=== PATIENT | male | born 1945 | race Caucasian/White ===

== ENCOUNTER 2018-07-08 10:51 | Emergency (ER) | payer OTHER ==
[2018-07-08 11:19] VITALS: TEMP 98.6; BMI 49.4
--- NOTE | 2018-07-08 11:40 | PDOC ---
History of Present Illness - General Chief Complaint: Injury Stated Complaint: LOWER BACK PAIN Past History - Past Medical History Allergies/Adverse Reactions: Allergies Allergy/AdvReac Type Severity Reaction Status Date / Time No Known Allergies Allergy Verified 07/08/18 10:58 COPD: No Dementia: Yes GI Disorders: Yes (GERD) HTN: Yes Psychiatric Problems: Yes Other medical history: hepatitis B - Suicide/Smoking/Psychosocial Hx Smoking History: Current every day smoker Number of Cigarettes Smoked Daily: 2 Information on smoking cessation initiated: No *Physical Exam - Vital Signs Last Vital Signs Temp Pulse Resp BP Pulse Ox 98.6 F 66 24 H 138/73 91 L 07/08/18 11:06 07/08/18 11:06 07/08/18 11:06 07/08/18 11:06 07/08/18 11:06 - Physical Exam Comments: GENERAL: Awake, alert, and oriented to person/place/time, in no acute distress_ HEAD: No signs of trauma, normocephalic, atraumatic _ EYES: PERRLA, EOMI, sclera anicteric, conjunctiva clear_ ENT: Hearing grossly normal, nares patent, oropharynx clear without exudates. No uvular deviation. Moist mucosa_ NECK: Normal ROM, supple, no lymphadenopathy, JVD, or masses_ LUNGS: No distress, speaks full sentences, clear to auscultation bilaterally _ HEART: Regular rate and rhythm, normal S1 and S2, no murmurs appreciated, peripheral pulses normal and equal bilaterally._ ABDOMEN: Soft, nontender, normoactive bowel sounds. No guarding, no rebound. No masses_ EXTREMITIES: Normal inspection, Normal range of motion, no edema. No clubbing or cyanosis_ NEUROLOGICAL: Cranial nerves II through XII grossly intact. Normal speech, normal gait, no focal sensorimotor deficits _ SKIN: Warm, Dry, normal turgor, no rashes or lesions noted_ 07/08/18 11:40 Moderate Sedation - Procedure Monitoring Vital Signs: Procedure Monitoring Vital Signs Temperature 98.6 F 07/08/18 11:06 Pulse Rate 66 07/08/18 11:06 Respiratory Rate 24 H 07/08/18 11:06 Blood Pressure 138/73 07/08/18 11:06 O2 Sat by Pulse Oximetry (%) 91 L 07/08/18 11:06 *DC/Admit/Observation/Transfer - Referrals Referrals: Gabrielle Gutierrez MD [Primary Care Provider] - - Patient Instructions - Post Discharge Activity
--- NOTE | 2018-07-08 12:40 | PDOC ---
History of Present Illness - General Chief Complaint: Injury Stated Complaint: LOWER BACK PAIN Time Seen by Provider: 07/08/18 11:46 History Source: Patient Exam Limitations: No Limitations - History of Present Illness Initial Comments: 07/08/18 12:32 73 yo male from [facility] presents to ED after an unwitnessed fall off his bed this am. PMH of IDDM, HTN, HLD, 2 MIs, most recent approx 1 year ago (no stents or surgical intervention, only on ASA 81 mg) COPD, PTSD, depression, insomnia, chronic pain and rheumatoid arthritis. Pt appears to be a poor historian. When asked why he is in the ED today he states, "I am having trouble sleeping and no body at the snf helps me so I called 911." Asked directly what the pt would like us to do to help him and states he would like to switch [facility]. After direct questioning if pt had a recent fall, pt admits to falling out of his bed today, 2 feet off the ground onto wooded floors, did not hit head, no LOC, no changes in speech/vision, no sensory or motor deficits on 1 side of his body, N/ V, denies confusion. Pt is wheelchair bound and was helped back into his bed right after the fall. Asked directly if pt has back pain, denies. Pt admits to chronic bilateral knee and hip pain from RA that is controlled by his diet. Past History - Past Medical History Allergies/Adverse Reactions: Allergies Allergy/AdvReac Type Severity Reaction Status Date / Time No Known Allergies Allergy Verified 07/08/18 10:58 COPD: No Dementia: Yes GI Disorders: Yes (GERD) HTN: Yes Psychiatric Problems: Yes Other medical history: hepatitis B - Suicide/Smoking/Psychosocial Hx Smoking History: Current every day smoker Number of Cigarettes Smoked Daily: 2 Information on smoking cessation initiated: No Review of Systems - Review of Systems Constitutional: No: Chills, Fever Respiratory: No: Cough, Shortness of Breath, SOB with Exertion Cardiac (ROS): Yes: Edema (chronic). No: Chest Pain ABD/GI: No: Constipated, Diarrhea, Nausea, Vomiting : No: Burning, Dysuria, Discharge, Frequency, Flank Pain Musculoskeletal: No: Back Pain, Muscle Weakness Integumentary: No: Change in Color Neurological: No: Headache, Numbness, Paresthesia, Weakness, Dizziness *Physical Exam - Vital Signs Last Vital Signs Temp Pulse Resp BP Pulse Ox 98.6 F 66 24 H 138/73 91 L 07/08/18 11:06 07/08/18 11:06 07/08/18 11:06 07/08/18 11:06 07/08/18 11:06 - Physical Exam General Appearance: Yes: Nourished, Appropriately Dressed. No: Apparent Distress HEENT: positive: EOMI, CARSON Neck: positive: Supple Respiratory/Chest: positive: Lungs Clear, Normal Breath Sounds. negative: Respiratory Distress, Crackles, Rales, Stridor, Wheezing Cardiovascular: positive: Regular Rhythm, Regular Rate, S1, S2. negative: Edema , JVD, Murmur Vascular Pulses: Dorsalis-Pedis (R): 3+, Doralis-Pedis (L): 3+ Gastrointestinal/Abdominal: positive: Flat, Soft. negative: Pulsatile Mass, Distended, Guarding, Rebound, Tenderness Musculoskeletal: positive: Other (no deformities, stepoffs or pain with papation to midline C/T/L/S spine ). negative: CVA Tenderness, Vertebral Tenderness Extremity: positive: Normal Capillary Refill, Normal Inspection Integumentary: positive: Normal Color, Dry, Warm Neurologic: positive: liner replacer II-XII NML intact, Fully Oriented, Alert, Normal Mood/ Affect, Normal Response, Motor Strength 5/5. negative: Facial Droop, Numbness, Sensory Deficit, Finger to Nose (normal), Confused, Disoriented Moderate Sedation - Procedure Monitoring Vital Signs: Procedure Monitoring Vital Signs Temperature 98.6 F 07/08/18 11:06 Pulse Rate 66 07/08/18 11:06 Respiratory Rate 24 H 07/08/18 11:06 Blood Pressure 138/73 07/08/18 11:06 O2 Sat by Pulse Oximetry (%) 91 L 07/08/18 11:06 Medical Decision Making - Medical Decision Making Spoke with [facility] staff who state pt used other residents cell phone to call 911 after an unwitnessed fall with complaint of back pain 07/08/18 13:15 Pt in the ED states he is not happy at [facility] and has no medical complaints today. Denies back pain in the ED but does admit to having an unwitnessed fall today without hitting head, LOC, HE or other concerning/focal neurological deficits. AOX3, has full capacity, non toxic appearing and comfortable. denies pain while in the ED vitals stable, pt O2 sats low 90s, HX of COPD. Denies difficulty breathing, dizziness, confusion or requiring O2 at home Pt now stating that he would like to go back home without work up done in the ED. Pt agrees to have EKG and imaging done at this time but denies blood work. EKG show NSR without ST changes Lumbosacral X ray no acute path Thoracic x ray no acute path Head CT non con no acute path C spine non con no fracutres/subluxation or acute path Pt given home dose of 650 mg Tylenol with pain relief Pt states he wants to go back home at this time. Given DC instructions, understands plan and strict return precautions Sent home *DC/Admit/Observation/Transfer Diagnosis at time of Disposition: Unwitnessed fall - Discharge Dispostion Disposition: HOME Condition at time of disposition: Stable - Referrals Referrals: Gabrielle Gutierrez MD [Primary Care Provider] - - Patient Instructions Printed Discharge Instructions: How to Prevent Falls Additional Instructions: Please see your primary doctor within the next 48 hours. Continue taking your home dosed medications as prescribed. Return to the ER for new or concerning symptoms including but not limited to: Confusion, dizziness, headaches, changes in sensation or weakness on 1 side of your body. Thank you - Post Discharge Activity
[2018-07-08] MEDS ORDERED: ACETAMINOPHEN 650 MG/20.3 ML ORAL SOLUTION (CUPS) PO ONE (14:36)
[2018-07-08] MEDS ORDERED: ACETAMINOPHEN 650 MG/20.3 ML ORAL SOLUTION (CUPS) ONE (14:43)
--- NOTE | 2018-07-08 14:56 | PDOC ---
Attending Attestation - HPI HPI: 07/08/18 14:57 The patient is a 73 year old male with a past medical history of diabetes, HTN, HLD, NE (x2), rheumatoid arthritis, insomnia, PTSD, COPD, and depression brought in today by EMS for evaluation of fall. Patient reports that he feel out of bed this morning and called 911. Patient denies head strike or loss of consciousness. Patient denies headache, lightheadedness. Denies fever, chills. Denies chest pain, shortness of breath. Denies nausea, vomiting, diarrhea, abdominal pain. Allergies: NKA PCP: Gabrielle Gutierrez - Medical Decision Making 07/08/18 14:57 Documentation prepared by ZEYAD Swanson, acting as medical record retrieval specialist for Zhang Dubon MD. The patient is a 73 year old male with a past medical history of diabetes, HTN, HLD, NE (x2), rheumatoid arthritis, insomnia, PTSD, COPD, and depression brought in today by EMS for evaluation of fall. <Apolinar Tate - Last Filed: 07/08/18 14:57> - Resident Resident Name: Jaguar Ann - ED Attending Attestation I have performed the following: I have examined & evaluated the patient, The case was reviewed & discussed with the resident, I agree w/resident's findings & plan, Exceptions are as noted - Physicial Exam PE: 07/08/18 16:12 Reviewed Residents PE - Medical Decision Making 07/08/18 14:56 Sent from [facility] because of fall no significant pain on examination head CT cervical spine CT negative for acute injury X-rays negative for acute pathology Patient comfortable asking to go home Findings, need for follow-up and strict return instructions discussed with patient. <Zhang Dubon - Last Filed: 07/08/18 16:13>
--- NOTE | 2018-07-08 15:36 | EKG ---
Test Reason : Blood Pressure : / mmHG Vent. Rate : 067 BPM Atrial Rate : 067 BPM P-R Int : 196 ms QRS Dur : 112 ms QT Int : 406 ms P-R-T Axes : 051 -38 056 degrees QTc Int : 429 ms NORMAL SINUS RHYTHM LEFT AXIS DEVIATION ABNORMAL ECG NO PREVIOUS ECGS AVAILABLE Confirmed by MD MARY, JOJO ([id number]) on 07/08/2018 3:36:18 PM Referred By: Confirmed By:JOJO HERNANDEZ MD
[2018-07-08 16:31] VITALS: BP 157/79; PULSE 77
== END 2018-07-08 16:15 | disposition home or self-care (01) ==
LOC: JER 10:51
DX: M54.5 Low back pain (principal); W06.XXXA Fall from bed, initial encounter; Y93.89 Activity, other specified; Y92.122 Bedroom in nursing home as the place of occurrence of the external cause; Y99.8 Other external cause status; I10 Essential (primary) hypertension; E11.9 Type 2 diabetes mellitus without complications; E78.5 Hyperlipidemia, unspecified; J44.9 Chronic obstructive pulmonary disease, unspecified; I25.2 Old myocardial infarction; M06.80 Other specified rheumatoid arthritis, unspecified site; G47.00 Insomnia, unspecified; F43.10 Post-traumatic stress disorder, unspecified; F32.9 Major depressive disorder, single episode, unspecified; F03.90 Unspecified dementia, unspecified severity, without behavioral disturbance, psychotic disturbance, mood disturbance, and anxiety; Z86.19 Personal history of other infectious and parasitic diseases; Z99.3 Dependence on wheelchair
CPT/HCPCS: 70450-TC; 72070-TC-FY; 72100-TC-FY; 72125-TC; 93005; 93010; 99282-25

== ENCOUNTER 2018-10-24 11:50 | Day surgery (SDC) | payer OTHER ==
[2018-10-22 10:57] VITALS: BMI 50.8
[2018-10-24] MEDS ORDERED: PROPOFOL 20 ML ONE ×2 (13:36)
[2018-10-24 14:45] VITALS: PULSE 65; TEMP 98.3
[2018-10-24 17:19] VITALS: BP 118/76
--- NOTE | 2018-10-29 17:05 | PATH ---
Surgical Pathology Report Patient Name: MIREYA LAM [facility]. Rec. #: [id number] /Age/Gender: 1945 (Age: 73) / M Account: [id number] [facility] Taken: 10/24/2018 Received: 10/26/2018 Reported: 10/29/2018 Physicians: Jackelyn Bernardo M.D. Specimen(s) Received A: POLYP JUNCTION OF ASCENDING COLON AND TRANSVERSE B: POLYP ASCENDING COLON C: POLYP TRANSVERSE COLON D: POLYP DISTAL TRANSVERSE COLON Clinical History Hematochezia Postoperative diagnosis: Polyp, diverticulosis, hemorrhoids Final Diagnosis A. POLYP AT JUNCTION OF ASCENDING COLON AND TRANSVERSE, POLYPECTOMY: TUBULAR ADENOMA. B. ASCENDING COLON POLYP, POLYPECTOMY: TUBULAR ADENOMA. C. TRANSVERSE COLON POLYP, POLYPECTOMY: TUBULAR ADENOMA. D. DISTAL TRANSVERSE COLON POLYP, POLYPECTOMY: TUBULAR ADENOMA. Electronically Signed Inez Dewitt M.D. Gross Description A. Received in formalin, labeled "polyp at junction of ascending colon and transverse" are 2 villareal, irregular portions of soft tissue averaging 0.2 cm. in greatest dimension. The specimens are submitted in toto in one cassette. B. Received in formalin, labeled "polyp ascending colon" is a villareal, irregular portion of soft tissue measuring 0.3 cm. in greatest dimension. The specimen is submitted in toto in one cassette. C. Received in formalin, labeled "polyp transverse colon" is a villareal, polypoid portion of soft tissue measuring 0.6 cm. in greatest dimension. The specimen is submitted in toto in one cassette. D. Received in formalin, labeled "polyp distal transverse colon" is a villareal, polypoid portion of soft tissue measuring 0.4 cm. in greatest dimension. The specimen is submitted in toto in one cassette. DL10/26/2018 saudi10/26/2018
== END 2018-10-24 17:30 ==
LOC: FASU-ENDO 11:50
PROVIDERS: ATTEND Internal Medicine Gastroenterology
PROC: 0DBL8ZX Excision of Transverse Colon, Via Natural or Artificial Opening Endoscopic, Diagnostic (ICD-10-PCS; 2018-10-24)
PROC: 0DBK8ZX Excision of Ascending Colon, Via Natural or Artificial Opening Endoscopic, Diagnostic (ICD-10-PCS; principal; 2018-10-24 14:01)
DX: K92.1 Melena (principal); K57.30 Diverticulosis of large intestine without perforation or abscess without bleeding; D12.3 Benign neoplasm of transverse colon; D12.2 Benign neoplasm of ascending colon; K64.1 Second degree hemorrhoids
CPT/HCPCS: 82962; 88305-TC

== ENCOUNTER 2019-03-13 08:47 | Day surgery (SDC) | payer OTHER ==
[2019-03-07 16:17] VITALS: BMI 43.2
[2019-03-13] MEDS ORDERED: PROPOFOL 20 ML ONE (10:56)
[2019-03-13] MEDS ORDERED: MIDAZOLAM HCL 2 MG/2 ML SINGLE DOSE VIAL ONE (10:56)
[2019-03-13 12:40] VITALS: TEMP 98.5
[2019-03-13 12:46] VITALS: PULSE 72
[2019-03-13 13:01] VITALS: BP 143/66
--- NOTE | 2019-03-15 15:13 | PATH ---
Surgical Pathology Report Patient Name: MIREYA LAM [facility]. Rec. #: [id number] /Age/Gender: 1945 (Age: 74) / M Account: [id number] Location: [facility] Taken: 03/13/2019 Received: 03/13/2019 Reported: 03/15/2019 Physicians: Jackelyn Bernardo M.D. Specimen(s) Received A: SECOND PORTION DUODENUM AND DUODENAL BULB POLYP B: GASTRIC ANTRUM C: GE JUNCTION AND NODULE D: MID ESOPHAGUS Clinical History Dyspepsia Postoperative diagnosis: GE junction nodule, duodenal bulb polyp, gastritis, esophagitis Final Diagnosis A. SECOND PORTION OF DUODENUM AND DUODENAL BULB POLYP, BIOPSY: GASTRIC HETEROTOPIC TISSUE WITH MODERATE CHRONIC INFLAMMATION. MILD CHRONIC DUODENITIS. B. GASTRIC ANTRUM, BIOPSY: MILD CHRONIC GASTRITIS WITH FEATURES OF REACTIVE GASTROPATHY. IMMUNOSTAIN IS NEGATIVE FOR H. PYLORI ORGANISMS. C. GE JUNCTION WITH NODULE, BIOPSY: ESOPHAGOGASTRIC JUNCTIONAL (SQUAMOCOLUMNAR) MUCOSA SHOWING INTESTINAL METAPLASIA AND MODERATE CHRONIC INFLAMMATION, COMPATIBLE WITH DELGADO'S ESOPHAGUS IN CONJUNCTION WITH APPROPRIATE ENDOSCOPIC FINDINGS. NEGATIVE FOR DYSPLASIA. D. MID ESOPHAGUS, BIOPSY: ESOPHAGEAL (SQUAMOUS) MUCOSA WITH NO PATHOLOGIC FINDINGS. NO COLUMNAR EPITHELIUM/INTESTINAL METAPLASIA IS IDENTIFIED. Electronically Signed Penny Badillo M.D. Gross Description A. Received in formalin, labeled "biopsy second portion of duodenum with bulb polyp" are 3 villareal, irregular portions of soft tissue ranging from 0.1-0.3 cm. in greatest dimension. The specimens are submitted in toto in one cassette. B. Received in formalin, labeled "biopsy gastric antrum" is a villareal, irregular portion of soft tissue measuring 0.5 cm. in greatest dimension. The specimen is submitted in toto in one cassette. C. Received in formalin, labeled "biopsy GE junction" is a villareal, irregular portion of soft tissue measuring 0.3 cm. in greatest dimension. The specimen is submitted in toto in one cassette. D. Received in formalin, labeled "biopsy mid esophagus" is a villareal, irregular portion of soft tissue measuring 0.4 cm. in greatest dimension. The specimen is submitted in toto in one cassette. 03/14/2019 saudi03/14/2019
== END 2019-03-13 14:00 | disposition home or self-care (01) ==
LOC: FASU-ENDO 08:47
PROVIDERS: ATTEND Internal Medicine Gastroenterology
PROC: 0DB68ZX Excision of Stomach, Via Natural or Artificial Opening Endoscopic, Diagnostic (ICD-10-PCS; 2019-03-13)
PROC: 0DB28ZX Excision of Middle Esophagus, Via Natural or Artificial Opening Endoscopic, Diagnostic (ICD-10-PCS; 2019-03-13)
PROC: 0DB38ZX Excision of Lower Esophagus, Via Natural or Artificial Opening Endoscopic, Diagnostic (ICD-10-PCS; 2019-03-13)
PROC: 0DB98ZX Excision of Duodenum, Via Natural or Artificial Opening Endoscopic, Diagnostic (ICD-10-PCS; principal; 2019-03-13 11:44)
DX: K31.7 Polyp of stomach and duodenum (principal); K25.9 Gastric ulcer, unspecified as acute or chronic, without hemorrhage or perforation; K29.80 Duodenitis without bleeding; K29.50 Unspecified chronic gastritis without bleeding; K31.9 Disease of stomach and duodenum, unspecified; K22.70 Barrett's esophagus without dysplasia; K20.9 Esophagitis, unspecified; R10.13 Epigastric pain
CPT/HCPCS: 82962; 88305-TC; 88342-TC

== ENCOUNTER 2019-05-22 08:47 | Day surgery (SDC) | payer OTHER ==
[2019-05-22] MEDS ORDERED: PROPOFOL 20 ML ONE ×2 (09:13)
[2019-05-22 10:03] VITALS: BMI 43.4
[2019-05-22 11:03] VITALS: TEMP 98.6
[2019-05-22 11:30] VITALS: BP 129/70
[2019-05-22 11:49] VITALS: PULSE 70
--- NOTE | 2019-05-24 16:26 | PATH ---
Surgical Pathology Report Patient Name: MIREYA LAM [facility]. Rec. #: [id number] /Age/Gender: 1945 (Age: 74) / M Account: [id number] Location: [facility] Taken: 05/22/2019 Received: 05/22/2019 Reported: 05/24/2019 Physicians: Jackelyn Bernardo M.D. 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 GASTRIC ANTRUM, BIOPSY: GASTRIC MUCOSA WITH CHRONIC GASTRITIS. IMMUNOSTAIN FOR H. PYLORI IS NEGATIVE. NEGATIVE FOR INTESTINAL METAPLASIA. B. GE JUNCTION, BIOPSY: GASTROESOPHAGEAL JUNCTIONAL MUCOSA WITH REFLUX ESOPHAGITIS. NEGATIVE FOR INTESTINAL METAPLASIA. Electronically Signed Inez Dewitt M.D. Gross Description A. Received in formalin, labeled "biopsy gastric antrum" is a villareal, irregular portion of soft tissue measuring 0.6 cm. in greatest dimension. The specimen is submitted in toto in one cassette. B. Received in formalin, labeled "biopsy GE junction" are 4 villareal, irregular portions of soft tissue ranging from 0.2-0.6 cm. in greatest dimension. The specimens are submitted in toto in one cassette. 05/23/2019 [facility] [place]05/23/2019
== END 2019-05-22 11:49 | disposition home or self-care (01) ==
LOC: FASU-ENDO 08:47
PROVIDERS: ATTEND Internal Medicine Gastroenterology
PROC: 0DB68ZX Excision of Stomach, Via Natural or Artificial Opening Endoscopic, Diagnostic (ICD-10-PCS; 2019-05-22)
PROC: 0DB18ZX Excision of Upper Esophagus, Via Natural or Artificial Opening Endoscopic, Diagnostic (ICD-10-PCS; 2019-05-22)
PROC: 0DB28ZX Excision of Middle Esophagus, Via Natural or Artificial Opening Endoscopic, Diagnostic (ICD-10-PCS; 2019-05-22)
PROC: 0DB38ZX Excision of Lower Esophagus, Via Natural or Artificial Opening Endoscopic, Diagnostic (ICD-10-PCS; 2019-05-22)
PROC: 0DB48ZX Excision of Esophagogastric Junction, Via Natural or Artificial Opening Endoscopic, Diagnostic (ICD-10-PCS; 2019-05-22)
PROC: 0DB98ZX Excision of Duodenum, Via Natural or Artificial Opening Endoscopic, Diagnostic (ICD-10-PCS; principal; 2019-05-22 10:43)
DX: Z09 Encounter for follow-up examination after completed treatment for conditions other than malignant neoplasm (principal); K29.50 Unspecified chronic gastritis without bleeding; K21.0 Gastro-esophageal reflux disease with esophagitis
CPT/HCPCS: 88305-TC; 88342-TC